=== PATIENT | male | born 1970 | race Caucasian/White ===

== ENCOUNTER 2025-08-17 07:56 | Emergency (ER) | payer BC, SELFPAY ==
[2025-08-17] VITALS (13 sets, daily range): BP systolic 110–128; BP diastolic 67–93; PULSE 107; RESP 18; TEMP 36.8; O2SAT 90–97
--- NOTE | ~2025-08-17 | CT_ITS ---
EXAMINATION: CT lumbar spine wo con COMPARISON: None HISTORY: radicular pain TECHNIQUE: Axial images were obtained through the spine without IV contrast. Coronal, sagittal reconstruction images were obtained from the axial views. CT scan performed using dose optimization techniques including the following automated exposure control; adjustment of mA and/or kV; use of iterative reconstruction technique. Automatic exposure control was used to reduce radiation dose. Permanent radiation dose record is archived to PACS. FINDINGS: The vertebral heights are intact, there is no fracture or subluxation identified. There are disc prostheses noted at L5-S1, L4-5 and L3-4, the visualized hardware appears intact with minimal loss of the remaining disc heights. The soft tissues demonstrate bilateral renal calculi the largest right kidney 4 mm. Impression: No acute abnormality. Reviewed, dictated and finalized at location P. [facility] Impression: No acute abnormality.
--- OUTSIDE RECORDS SUMMARY | 2025-08-17 08:02 | XMS_ITS | Clinical Summary ---
Author Organization [facility] Address [address] [place] [address] Care Team Providers Care Social Worker Health Services Name Role Phone Koby Mckeon Primary Care Provider Allergies Active Allergy Reactions Criticality Noted Date Comments Cephalexin Vomiting Low 12/28/2023 Medications atorvastatin (LIPITOR) 20 mg tablet Take 1 tablet (20 mg total) by mouth daily 5 Active bisacodyl EC (DULCOLAX EC) 5 mg EC tablet Take 1 tablet (5 mg total) by mouth daily as needed for constipation 5 Active polyethylene glycol (MIRALAX) 17 gram/dose bulk powder Take 17 g by mouth as needed 5 Active Ozempic 1 mg/dose (4 mg/3 mL) pen injector injection Inject 1 mg under the skin once a week 5 Active Active Problems Problem Noted Date Diagnosed Date Pulmonary nodule 07/28/2025 Encounters Date Type Department Care Team Description 08/04/2025 8:24 AM MARKETING SUPPORT COORDINATOR - 08/04/2025 11:59 PM MARKETING SUPPORT COORDINATOR Hospital Encounter [facility] [address] [place] [address] Discharge Disposition: Discharge to home or self care 08/04/2025 8:23 AM MARKETING SUPPORT COORDINATOR - 08/04/2025 11:59 PM MARKETING SUPPORT COORDINATOR Hospital Encounter [facility]) [address] [place] [address] Discharge Disposition: Discharge to home or self care 08/04/2025 8:21 AM MARKETING SUPPORT COORDINATOR - 08/04/2025 11:59 PM MARKETING SUPPORT COORDINATOR Hospital Encounter [facility]) [address] [place] [address] Discharge Disposition: Discharge to home or self care 08/04/2025 Telephone [facility] [address] [facility] Medicine [address]th [place] [address] [place] [address] Christina Arshad RN 07/28/2025 9:00 AM MARKETING SUPPORT COORDINATOR Office Visit [facility] [address] [facility] 8th [place] [address] [place] [address] Hilda Garland MD Pulmonary nodule (Primary Dx) 07/28/2025 8:00 AM MARKETING SUPPORT COORDINATOR - 07/28/2025 11:59 PM MARKETING SUPPORT COORDINATOR Hospital Encounter [facility] [address] [facility] [address] [place] [address] Pulmonary nodule Discharge Disposition: Discharge to home or self care 07/28/2025 [facility] [address] [facility] [address]th [place] [address] [place] [address] Sirena Nunes CMA 07/09/2025 [facility] [address] [facility] 8th [place] [address] [place] [address] Kit Multani CPhT Pulmonary nodule (Primary Dx) from Last 3 Months Family History Medical History Relation Name Comments Hypertension Father Cancer Maternal Grandfather Diabetes Maternal Grandfather Hypertension Maternal Grandfather Cancer Maternal Grandmother Diabetes Maternal Grandmother Hypertension Maternal Grandmother Lung disease Maternal Grandmother Thyroid disease Maternal Grandmother Diabetes Mother Hypertension Mother Stroke Mother Thyroid disease Mother Cancer Paternal Grandfather Diabetes Paternal Grandfather Hypertension Paternal Grandfather Cancer Paternal Grandmother Diabetes Paternal Grandmother Hypertension Paternal Grandmother Relation Name Status Comments Father Maternal Grandfather Maternal Grandmother Mother Paternal Grandfather Paternal Grandmother Social History Tobacco Use Types Packs/Day Years Used Date Smoking Tobacco: Never Passive Smoke Exposure: Past Smokeless Tobacco: Never Tobacco Cessation:Counseling Given: Not Answered Sex and Gender Information Value Date Recorded Sex Assigned at Not on file Legal Sex Male 6:16 PM MARKETING SUPPORT COORDINATOR Gender Identity Not on file Sexual Orientation Not on file Last Filed Vital Signs Vital Sign Reading Time Taken Comments Blood Pressure 108/74 07/28/2025 9:32 AM MARKETING SUPPORT COORDINATOR Pulse 71 07/28/2025 9:32 AM MARKETING SUPPORT COORDINATOR Temperature 36.4 C (97.6 F) 07/28/2025 9:32 AM MARKETING SUPPORT COORDINATOR Respiratory Rate 18 07/28/2025 9:32 AM MARKETING SUPPORT COORDINATOR Oxygen Saturation 98% 07/28/2025 9:32 AM MARKETING SUPPORT COORDINATOR Inhaled Oxygen Concentration - - Weight 104.3 kg (230 lb) 07/28/2025 9:32 AM MARKETING SUPPORT COORDINATOR Height 180.3 cm (5' 11) 07/28/2025 9:32 AM MARKETING SUPPORT COORDINATOR Body Mass Index 32.08 07/28/2025 9:32 AM MARKETING SUPPORT COORDINATOR Plan of Treatment Health Maintenance Due Date Last Done Comments Colon Cancer Screening-Colonoscopy 1972 Depression Screening 1972 Hepatitis C Screening 1972 Prostate Cancer Screening-PSA 1972 DTaP/Tdap/Td Vaccine (1 - Tdap) 1983 Hepatitis B Screening 1990 Regular Well Visit/Exam 18-64 1990 Zoster Vaccine (1 of 2) 2022 Influenza Vaccine (#1) 2025 Pneumococcal vaccine <65 Aged Out No longer eligible based on patient's age to complete this topic Procedures Procedure Name Priority Date/Time Associated Diagnosis Comments CT BODY OUTSIDE REFERENCE Routine 08/04/2025 8:24 AM MARKETING SUPPORT COORDINATOR CT BODY OUTSIDE REFERENCE Routine 08/04/2025 8:23 AM MARKETING SUPPORT COORDINATOR CT BODY OUTSIDE REFERENCE Routine 08/04/2025 8:21 AM MARKETING SUPPORT COORDINATOR PULMONARY FUNCTION TEST (PFT) Routine 07/28/2025 8:59 AM MARKETING SUPPORT COORDINATOR Pulmonary nodule from Last 3 Months Results * CT Body Outside Reference (08/04/2025 8:24 AM MARKETING SUPPORT COORDINATOR) Impressions [facility] - 08/04/2025 8:24 AM MARKETING SUPPORT COORDINATOR These images are for Reference purposes only and have not been reviewed by [facility]. There will be no report generated by a [facility] Radiologist. Narrative [facility] - 08/04/2025 8:24 AM MARKETING SUPPORT COORDINATOR EXAMINATION: Images For Reference Purposes Only us Hilda Garland MD [facility] CT PROCEDURES Final Resu lt Performing Organization Address [facility] de Phone Number [email or web address] * CT Body Outside Reference (08/04/2025 8:23 AM MARKETING SUPPORT COORDINATOR) Impressions [facility] - 08/04/2025 8:23 AM MARKETING SUPPORT COORDINATOR These images are for Reference purposes only and have not been reviewed by [facility]. There will be no report generated by a [facility] Radiologist. Narrative [facility] - 08/04/2025 8:23 AM MARKETING SUPPORT COORDINATOR EXAMINATION: Images For Reference Purposes Only us Hilda Garland MD [facility] CT PROCEDURES Final Resu Performing Organization Address [facility] de Phone Number [email or web address] * CT Body Outside Reference (08/04/2025 8:21 AM MARKETING SUPPORT COORDINATOR) Impressions [facility] - 08/04/2025 8:21 AM MARKETING SUPPORT COORDINATOR These images are for Reference purposes only and have not been reviewed by [facility]. There will be no report generated by a [facility] Radiologist. Narrative [facility] - 08/04/2025 8:21 AM MARKETING SUPPORT COORDINATOR EXAMINATION: Images For Reference Purposes Only us Hilda Garland MD [facility] CT PROCEDURES Final Resu lt Performing Organization Address [facility] de Phone Number [email or web address] * Pulmonary Function Test - (07/28/2025 8:59 AM MARKETING SUPPORT COORDINATOR) FVC PRE 3.81 L [facility] FVC %PRE PRED 75 % [facility] FEV1 PRE 3.15 L [facility] FEV1 %PRE PRED 79 % [facility] FEV1/FVC PRE 82.7 % [facility] Anatomical Region Laterality Modality PFT 07/28/2025 8:55 AM MARKETING SUPPORT COORDINATOR Narrative 07/28/2025 9:29 AM MARKETING SUPPORT COORDINATOR PFT performed at:->[facility] Adult PFT Lab- [facility] Procedure:->Oxygen Assessment Titration Procedure:->Lung Volumes Procedure:->Spirometry Procedure:->Spirometry with Bronchodilator Procedure:->DLCO Procedure:->ABG with Co-oximetry DLCO:->Spirometry Air Type:->Room Air Standard:->Plethysmography w/airway resistance, nitrogen washout Pulmonary Function Test Interpretation SPIROMETRY: The FEV1 and FVC are reduced in a pattern suggestive of a restrictive abnormality. The inspiratory loop is normal. Impression: There is a mild restrictive ventilatory defect. However, measurement of lung volumes is suggested to confirm this if clinically indicated. The attending pulmonary physician certifies a physician presence in the [facility] during the administration of aerosolized bronchodilator. The attending pulmonary physician certifies that he/she has reviewed and interpreted the graphic and numerical data of this pulmonary function study and agrees with the written final report. The lower limit of normal for PaO2 and %HbO2 is age dependent. However, the [facility] Pulmonary Function Laboratory defines hypoxemia as a PaO2 <56 mm Hg or a %HbO2 <89%. Starting on September of 2024 the [facility] Pulmonary Function Laboratory utilizes race neutral GLI Global normative equations. Hilda Garland MD PFT ORDERABLES Final Result from Last 3 Months Insurance [employer] [facility] Care Teams Social Worker Health Services Relationship Specialty Start Date End Date Koby Mckeon PA [address] [place] [address] PCP - General Physician Miniature Set Constructor 07/09/25
--- NOTE | 2025-08-17 08:12 | PC.NURSE ---
Laboratory at pt bedside.
[2025-08-17] MEDS: KETOROLAC 15 MG/ML VIAL (*BKC) IV PUSH (08:22)
[2025-08-17] MEDS: ONDANSETRON INJ 4 MG/2 ML VIAL IV PUSH (08:22)
[2025-08-17] MEDS: dexAMETHasone SOD PHOS INJ 10 MG/ML 1 ML VIAL IV PUSH (08:23)
[2025-08-17] MEDS: HYDROmorphone HCL INJ (*CRX) 2 MG/ML VIAL 1 MG IV PUSH (08:23)
--- NOTE | 2025-08-17 08:25 | PC.NURSE ---
Pt to CT scanner with radiology transport.
[2025-08-17 08:28] LABS: Hematocrit 45.7 % (40.0-54.0); Hemoglobin 15.5 g/dL (14.0-18.0); Immature Granulocyte Percent A 0.9 % (0.0-0.0); Lymphocytes Absolute Auto 2.44 K/mm3 (1.10-4.50); Mean Corpuscular HGB Conc 33.9 g/dL (32-36); Mean Corpuscular Hemoglobin 29.7 pg (27.0-31.0); Mean Corpuscular Volume 87.5 fL (78.0-102.0); Nucleated Red Blood Cells Absolute Auto 0.00 K/mm3 (0.00-0.00); Nucleated Red Blood Cells Perc 0.0 % (0-0.0); Platelet Count Result 189 K/mm3 (150-420); Red Blood Count 5.22 M/mm3 (4.70-6.10); White Blood Count 11.0 K/mm3 (4.8-10.8)
--- NOTE | 2025-08-17 08:42 | PC.NURSE ---
Pt back in room from CT scanner.
[2025-08-17 08:59] LABS: Alanine Aminotransferase 22 U/L (6-50); Albumin Level 4.6 g/dL (3.5-5.1); Alkaline Phosphatase 88 U/L (38-126); Anion Gap 11 mmol/L (4-12); Aspartate Amino Transferase 24 U/L (17-59); Bilirubin,Total 0.7 mg/dL (0.2-1.3); Blood Urea Nitrogen 22 mg/dL (9-20); CRP 2.2 mg/dL (<1.0); Calcium 9.9 mg/dL (8.4-10.2); Carbon Dioxide 27 mmol/L (22-30); Chloride 106 mmol/L (98-107); Estimated CRCL calculation 60 ml/min; Estimated Glomerular Filt Rate 54; Glucose 124 mg/dL (65-110); Osmolality Calculated 302 mOsm/kg (285-295); Potassium 4.3 mmol/L (3.4-5.0); Sodium 144 mmol/L (137-145); Total Protein 7.8 g/dL (6.3-8.2)
--- NOTE | 2025-08-17 09:15 | PC.NURSE ---
Initial call to provider MD Cortez with [facility]. RN states provider is in a procedure currently and will call as soon as she is done.
--- NOTE | 2025-08-17 09:32 | PC.NURSE ---
Call back received from MD Cortez at [facility]. Provider to provider communication.
--- NOTE | 2025-08-17 09:35 | PC.NURSE ---
Nisreen Toro MD [facility]
--- NOTE | 2025-08-17 09:39 | ED_ITS ---
HPI - Back Pain/Injury General Chief Complaint: Back Pain/Injury Stated Complaint: Back and L. Leg pain Time Seen by Provider: 08/17/25 07:59 History of Present Illness HPI Narrative: 54-year-old with a history of back surgery several years ago here with a complains lower back radiating to his does mostly on the left for last few days. Patient that had a steroid injection at [place] in spine in orthopedic surgery [address] Daniel Toro ,He states pain is quite intense , No bladder or bowel incontinence. Denies any numbness. Denies any fever or chills MD elicited complaint: back pain Pertinent past history: prior back pain Onset (ago): week(s) (1) Timing: constant Severity: severe Similar Symptoms Previously: Yes Quality: aching Location: lumbar spine Radiation: left upper leg and left leg below the knee Exacerbating factors: none Relieving factors: none Associated symptoms: denies other symptoms Related Data Allergies Allergy/AdvReac Type Severity Reaction Status Date / Time cephalexin (From Keflex) Allergy Intermediate Vomiting Verified 08/17/25 08:06 Review of Systems 2 Review of Systems: All systems reviewed & are unremarkable except as noted in HPI and below Constitutional: Constitutional: Reports no additional constitutional complaints Eyes: Eyes: Reports no additional eye complaints ENT: Reports system reviewed and no additional complaints, except as documented Cardiovascular: Cardiovascular: Reports no additional cardiovascular complaints Respiratory: Respiratory: Reports no additional respiratory complaints Gastrointestinal: Gastrointestinal: Reports no additional gastrointestinal complaints Musculoskeletal: Musculoskeletal: Reports as per HPI Neurologic: Reports system reviewed and no additional complaints, except as documented PMFSH Past Medical History Medical History (Updated 08/17/25 @ 09:40 by Shola Mack MD) No significant past medical history Surgical History Surgical History No significant past surgical history Social History Social History Smoking status: Never smoker Exam 2 Narrative: GENERAL: Well-appearing, well-nourished, and in no acute distress. HEAD: Normocephalic, atraumatic. EYES: PERRLA and EOMI. ENT: Nares clear, no rhinorrhea or epistaxis. Mucous membranes moist. NECK: Supple. CHEST: Clear to auscultation. No respiratory distress. HEART: Regular rate and rhythm. No murmur heard. Normal peripheral pulses. EXTREMITIES: Normal range of motion. No edema. painful ROM of the left lower extremity SKIN: Warm, dry, no rash. NEURO: No focal deficits. Alert and oriented x3. PSYCH: Normal mood and affect. Course Course Emergency Course: pain and is much improved after IV hydromorphone and steroid informed him about his lab work, CT findings. Discussed with Dr. Casillas and patient can be followed up in the office. Vital Signs Vital signs: Vital Signs Temperature 36.8 C 08/17/25 08:08 Pulse Rate 107 H 08/17/25 08:08 Respiratory Rate 18 08/17/25 08:08 Blood Pressure 128/93 H 08/17/25 08:08 Pulse Oximetry 97 08/17/25 08:08 Oxygen Delivery Room Air 08/17/25 08:08 Temperature 36.8 C 08/17/25 08:08 Pulse Rate 107 H 08/17/25 08:08 Respiratory Rate 18 08/17/25 08:08 Blood Pressure 119/78 08/17/25 09:31 Pulse Oximetry 95 08/17/25 09:31 Oxygen Delivery Room Air 08/17/25 08:08 MDM Differential Diagnosis Differential Diagnosis: Cauda equina, epidural bleed, epidural abscess Lab Data 08/17/25 08:19 08/17/25 08:19 Labs: Lab Results 08/17/25 Range/Units 08:19 WBC 11.0 H (4.8-10.8) K/mm3 RBC 5.22 (4.70-6.10) M/mm3 Hgb 15.5 (14.0-18.0) g/dL Hct 45.7 (40.0-54.0) % MCV 87.5 (78.0-102.0) fL MCH 29.7 (27.0-31.0) pg MCHC 33.9 (32-36) g/dL RDW 12.5 (11.6-14.4) % Plt Count 189 (150-420) K/mm3 MPV 9.1 (8.7-11.0) fl Immature Gran % (Auto) 0.9 H (0.0-0.0) % Neut % (Auto) 65.9 (50.0-70.0) % Lymph % (Auto) 22.1 (18.0-42.0) % Republic % (Auto) 8.9 (2.0-11.0) % Eos % (Auto) 1.9 (1.0-6.0) % Baso % (Auto) 0.3 (0.0-1.0) % Lymph # (Auto) 2.44 (1.10-4.50) K/mm3 Republic # (Auto) 0.98 H (0.10-0.90) K/mm3 Eos # (Auto) 0.21 (0.02-0.50) K/mm3 Baso # (Auto) 0.03 (0.00-0.10) K/mm3 Abs Immat Gran (auto) 0.10 H (0.00-0.00) K/mm3 Absolute Neuts (auto) 7.28 H (1.70-7.20) K/mm3 Absolute Nucleated RBC 0.00 (0.00-0.00) K/mm3 Nucleated RBC % 0.0 (0-0.0) % Sodium 144 (137-145) mmol/L Potassium 4.3 (3.4-5.0) mmol/L Chloride 106 (98-107) mmol/L Carbon Dioxide 27 (22-30) mmol/L Anion Gap 11 (4-12) mmol/L BUN 22 H D (9-20) mg/dL Creatinine 1.38 H (0.7-1.3) mg/dL Estim Creat Clear Calc 60 ml/min Estimated GFR 54 L (59 - ) Glucose 124 H (65-110) mg/dL Calculated Osmolality 302 H (285-295) mOsm/kg Calcium 9.9 (8.4-10.2) mg/dL Total Bilirubin 0.7 (0.2-1.3) mg/dL AST 24 (17-59) U/L ALT 22 (6-50) U/L Alkaline Phosphatase 88 (38-126) U/L C-Reactive Protein 2.2 H (<1.0) mg/dL Total Protein 7.8 (6.3-8.2) g/dL Albumin 4.6 (3.5-5.1) g/dL Imaging Data Radiologist's impression: ITS Impressions Lumbar Spine CT 08/17/25 08:45 Impression: No acute abnormality. Discharge Plan Discharge Clinical Impression: Radicular low back pain Patient Disposition: Home Condition: Stable Instructions: Lumbar Radiculopathy (ED) Additional Instructions: continue home medications, follow with your doctor. Patient Language: Russian Prescriptions: New methylprednisolone [Medrol (Bridger)] 4 mg tablets,dose pack See Rx Instructions .ROUTE .COMPLEX Qty: 21 0RF Rx Instructions: orally per package directions No Action ondansetron 4 mg tablet,disintegrating 4 mg PO Q6-8H PRN (Reason: nausea and vomiting) Qty: 14 0RF hydrocodone-acetaminophen [[place]] 5-325 mg tablet 1 tablet PO Q6H PRN (Reason: pain) Qty: 14 0RF tamsulosin [Flomax] 0.4 mg capsule 0.4 mg PO DAILY Qty: 7 0RF Rx Instructions: for kidney stone Follow-up/Referrals: Linda,KIESHA Whalen [Primary Care Provider] Time of Disposition: 09:41
--- OUTSIDE RECORDS SUMMARY | 2025-08-17 09:43 | XMS_ITS | Clinical Summary ---
Author Organization [facility] Address [address] [place] [address] Care Team Providers Care Cylinder Loader Name Role Phone Koby Mckeon Primary Care [...] Department Care Team Description 08/04/2025 8:24 AM ACETYLENE GAS COMPRESSOR - 08/04/2025 11:59 PM ACETYLENE GAS COMPRESSOR Hospital Encounter [facility] [address] [place] [address] Discharge Disposition: Discharge to home or self care 08/04/2025 8:23 AM ACETYLENE GAS COMPRESSOR - 08/04/2025 11:59 PM ACETYLENE GAS COMPRESSOR Hospital Encounter [facility]) [address] [place] [address] Discharge Disposition: Discharge to home or self care 08/04/2025 8:21 AM ACETYLENE GAS COMPRESSOR - 08/04/2025 11:59 PM ACETYLENE GAS COMPRESSOR Hospital Encounter [facility]) [address] [place] [address] Discharge Disposition: Discharge to home or self care 08/04/2025 Telephone [facility] [address] [facility] Medicine 8th [place] [address] [place] [address] Christina Arshad RN 07/28/2025 9:00 AM ACETYLENE GAS COMPRESSOR Office Visit [facility] [address] [facility] 8th [place] [address] [place] [address] Hilda Garland MD Pulmonary nodule (Primary Dx) 07/28/2025 8:00 AM ACETYLENE GAS COMPRESSOR - 07/28/2025 11:59 PM ACETYLENE GAS COMPRESSOR Hospital Encounter [facility] [address] [facility] [address] [place] [address] Pulmonary nodule Discharge Disposition: Discharge to home or self care 07/28/2025 [facility] [address] [facility] Medicine 8th [place] [address] [place] [address] Sirena Nunes CMA 07/09/2025 [facility] [address] [facility] 8th [place] [address] [place] [address] Kit Multani CPhT Pulmonary nodule (Primary Dx) [...] on file Legal Sex Male 6:16 PM ACETYLENE GAS COMPRESSOR Gender Identity Not on file Sexual Orientation Not on file Last Filed Vital Signs Vital Sign Reading Time Taken Comments Blood Pressure 108/74 07/28/2025 9:32 AM ACETYLENE GAS COMPRESSOR Pulse 71 07/28/2025 9:32 AM ACETYLENE GAS COMPRESSOR Temperature 36.4 C (97.6 F) 07/28/2025 9:32 AM ACETYLENE GAS COMPRESSOR Respiratory Rate 18 07/28/2025 9:32 AM ACETYLENE GAS COMPRESSOR Oxygen Saturation 98% 07/28/2025 9:32 AM ACETYLENE GAS COMPRESSOR Inhaled Oxygen Concentration - - Weight 104.3 kg (230 lb) 07/28/2025 9:32 AM ACETYLENE GAS COMPRESSOR Height 180.3 cm (5' 11) 07/28/2025 9:32 AM ACETYLENE GAS COMPRESSOR Body Mass Index 32.08 07/28/2025 9:32 AM ACETYLENE GAS COMPRESSOR Plan of Treatment Health Maintenance Due Date [...] BODY OUTSIDE REFERENCE Routine 08/04/2025 8:[address] BODY OUTSIDE REFERENCE Routine 08/04/2025 8:[address] BODY OUTSIDE REFERENCE Routine 08/04/2025 8:21 AM ACETYLENE GAS COMPRESSOR PULMONARY FUNCTION TEST (PFT) Routine 07/28/2025 8:59 AM ACETYLENE GAS COMPRESSOR Pulmonary nodule from Last 3 Months Results * CT Body Outside Reference (08/04/2025 8:24 AM ACETYLENE GAS COMPRESSOR) Impressions RAD_[facility] - 08/04/2025 8:24 AM ACETYLENE GAS COMPRESSOR These images are for Reference purposes only and have not been reviewed by [facility]. There will be no report generated by a [facility]iologist. Narrative [facility] - 08/04/2025 8:24 AM ACETYLENE GAS COMPRESSOR EXAMINATION: Images For Reference Purposes Only us Hilda Garland MD [facility] CT PROCEDURES Final Resu lt Performing Organization Address [facility] de Phone Number [email or web address] * CT Body Outside Reference (08/04/2025 8:23 AM ACETYLENE GAS COMPRESSOR) Impressions [facility] - 08/04/2025 8:23 AM ACETYLENE GAS COMPRESSOR These images are for Reference purposes only and have not been reviewed by [facility]. There will be no report generated by a [facility] Radiologist. Narrative [facility] - 08/04/2025 8:23 AM ACETYLENE GAS COMPRESSOR EXAMINATION: Images For Reference Purposes Only us Hilda Garland MD [facility] CT PROCEDURES Final Resu Performing Organization Address [facility] de Phone Number [email or web address] * CT Body Outside Reference (08/04/2025 8:21 AM ACETYLENE GAS COMPRESSOR) Impressions [facility] - 08/04/2025 8:21 AM ACETYLENE GAS COMPRESSOR These images are for Reference purposes only and have not been reviewed by [facility]. There will be no report generated by a [facility]iologist. Narrative [facility] - 08/04/2025 8:21 AM ACETYLENE GAS COMPRESSOR EXAMINATION: Images For Reference Purposes Only us Hilda Garland MD [facility] CT PROCEDURES Final Resu lt Performing Organization Address [facility] de Phone Number [email or web address] * Pulmonary Function Test - (07/28/2025 8:59 AM ACETYLENE GAS COMPRESSOR) FVC PRE 3.81 L [facility] FVC %PRE PRED 75 % [facility] FEV1 PRE 3.15 L [facility] FEV1 %PRE PRED 79 % [facility] FEV1/FVC PRE 82.7 % [facility] Anatomical Region Laterality Modality PFT 07/28/2025 8:55 AM ACETYLENE GAS COMPRESSOR Narrative 07/28/2025 9:29 AM ACETYLENE GAS COMPRESSOR PFT performed at:->[facility] Adult PFT Lab- [facility] Procedure:->Oxygen Assessment [...] and %HbO2 is age dependent. However, the [facility] defines hypoxemia as a PaO2 <56 mm Hg or a %HbO2 <89%. Starting on September of [address] [facility] Function Laboratory utilizes race neutral GLI Global normative equations. Hilda Garland MD PFT ORDERABLES Final Result from Last 3 Months Insurance [employer] Care Teams Cylinder Loader Relationship Specialty Start Date End Date Koby Mckeon PA [address] [place] [address] PCP - General Physician Quality Systems Engineer 07/09/25
== END 2025-08-17 10:08 | disposition home or self-care (01) ==
PROVIDERS: Emergency Provider Family Medicine; PCP Physician Assistant
DX: M54.50 Low back pain, unspecified (principal)
CPT/HCPCS: 36415; 72131; 80053; 85025; 86140; 96374; 96375; 99284; J1100; J1171; J1885; J2405

== ENCOUNTER 2025-08-24 17:00 | Emergency (ER) | payer BC, SELFPAY ==
[2025-08-24] VITALS (11 sets, daily range): BP systolic 105–184; BP diastolic 70–107; PULSE 86–121; RESP 16–20; TEMP 36.8; O2SAT 93–98
[2025-08-24] MEDS: MORPHINE SULFATE (*CRX) 4 MG/ML INJ IV PUSH (17:32)
[2025-08-24] MEDS: KETOROLAC 30 MG/ML VIAL (*BKC) IV PUSH (17:36)
[2025-08-24] MEDS: dexAMETHasone SOD PHOS INJ 10 MG/ML 1 ML VIAL IV PUSH (17:36)
--- NOTE | 2025-08-24 17:38 | ED_ITS ---
HPI - Back Pain/Injury General Chief Complaint: Back Pain/Injury Stated Complaint: L. 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 This was around 6 or 7 years ago, eventually had to have 3 diskectomies, replaced with ?titanium cages?. That helped a lot but then a few months ago he picks that up and it triggered ongoing pain in his left lower back going down his left leg, to the point where he had a 1st steroid injection about 3 weeks ago. It helped for 1 day, then the pain returned, and has been so painful it has been very difficult for him to do anything, difficult for him to get up and ambulate, and he was seen in the emergency department about a week ago, and CT was obtained that was negative for any evidence of bleed, infection, diskitis. He reports he was on a short course of steroids finish them yesterday, and reports he really has been in so much pain he has not been able to participate is usual activities, but there is no weakness or paralysis, there is been no incontinence of stool or urine, just excruciating pain. He he takes an occasional Tylenol or ibuprofen but denies having presents prescribed anything else. Denies any type of narcotic pain medication. He is set up back up to see his physician that did the injection this coming Saturday. He had called his doctor's office today to set him up for an ultrasound although was not sure of what. Related Data Allergies Allergy/AdvReac Type Severity Reaction Status Date / Time cephalexin (From Keflex) Allergy Intermediate Vomiting Verified 08/24/25 17:12 Review of Systems 2 Review of Systems: ROS is negative except as in HPI PMFSH Past Medical History Medical History (Updated 08/24/25 @ 20:49 by Casimiro Salamanca MD) No significant past medical history Surgical History Surgical History No significant past surgical history Social History Social History Smoking status: Never smoker Exam 2 Narrative: pleasant, well oriented, appears in significant pain but does not appear toxic, no acute distress He reports severe pain on palpation of his left lower leg ankle and foot such as the level of discomfort to check his pulse. Light touch of his skin does not trigger pain. There is no erythema of the distal left leg ankle or foot, no pedal edema, no calf tenderness, and pulses and capillary refill are intact. When he tries to raise his left leg pain increases. Pain also increases when he flexes or extends his left knee, ankle, or foot. Distal neurovascular is intact Const: General: cooperative, healthy appearing, comfortable, no acute distress, well developed, alert, awake and Physically active O rientation/consciousness: patient oriented x3 HENMT: Head: normal to inspection, normocephalic and atraumatic Ears: h earing grossly normal bilaterally and external ears normal Face/Nose/Sinus: N ormal external nose present, Normal nares present, Normal nasal mucous membranes and turbinates present and normal facial exam Face and sinus: normal facial exam Mouth: Yes Normal oral and palatal mucosa present, Yes lip normal, Yes tongue normal, Yes oropharynx normal and Yes moist mucous membranes Teeth and gingiva: dentition normal Throat: posterior oropharynx normal and tonsils normal ( erythematous) Eyes: General: appearance normal, both eyes and all related structures A lignment and Position: alignment normal and position normal Periorbital: p eriorbital findings normal Eyelids: eyelids normal Conjunctivae: c onjunctivae normal Sclera: sclerae normal Cornea: corneas normal P upils: Equal, round and reactive pupils present EOM: EOMs intact bilaterally Neck: Neck: normal visual inspection, full ROM and no lymphadenopathy Chest: Chest palpation & inspection: normal inspection of the chest Resp: Effort & Inspection: normal respiratory effort, able to speak in complete sentences, no audible wheezes, no respiratory distress and no use of accessory muscles Auscultation: clear to auscultation bilaterally Cardio: Jugular venous distension: no JVD Rate: regular rate Rhythm: r egular rhythm GI: Inspection: normal to inspection GI Palp: No abdominal tenderness, No Tenderness to palpation present (GI), No Guarding due to palpation present (GI), No No hepatosplenomegaly present, No Palpable mass present and No Rebound tenderness present Skin: General skin exam: normal color, no rashes or lesions noted, elasticity normal and turgor normal Neuro: General: patient oriented x3, gait normal, tone normal and moves all extremities Cranial nerves: Yes CN's II-XII intact bilaterally, Yes Equal, round and reactive pupils present and Yes Bilaterally intact EOM present S peech: normal speech Motor exam (neuro): 5/5 motor strength present throughout and Normal motor muscle tone present throughout Sensory Exam: n ormal sensation Extrem: General: normal to inspection, normal exam except as noted and no pedal edema Psych: Appearance: grossly normal and well kempt Mental Status: mental status grossly normal Speech and movement: Normal speech and movement present Affect: normal affect Attitude: cooperative Thought process: Normal thought process present Course Course Emergency Course: Differential diagnosis includes but is not limited to left sciatica, Workup shows an H&H of 15.8 and 46.8 which is normal, [place] [address]. His D-dimer is low at 0.22 so there is no indication for ultrasound at this point Patient's CMP is normal except for an elevated BUN of 23 and creatinine 1.26 likely consistent with some dehydration likely secondary to his pain on movement and likely reluctant to have to go to the restroom any more often than he needs to His CRP is normal at 0.8 Urine is negative for any evidence of infection, His sed rate is also low at 6. There is no indication at this time that this pain is a diskitis Discussed ways of managing the perception of pain Discussed role of medications such as amitriptyline, Lyrica, Cymbalta, Neurontin, all of which she has not had any exposure to Discuss role of steroids, he had been treated with a Medrol Dosepak and with his weight of about 240 lb, that Alexandra would be a pretty low steroid dose, the wound does IV, and will discharge him starting at 50 mg of prednisone a day dropping by 5 mg daily Will begin amitriptyline 25 mg at HS Will begin naproxen 500 mg 2 to 3 times a day Will give her short course of [place] when cautioned against prolonged use He is to follow-up with his back surgeon who did the injection He is to return emergency department if worsened Medical decision making complex and risk was moderate Vital Signs Vital signs: Vital Signs Temperature 36.8 C 08/24/25 17:05 Pulse Rate 121 H 08/24/25 17:05 Respiratory Rate 20 08/24/25 17:05 Blood Pressure 133/86 08/24/25 17:05 Pulse Oximetry 98 08/24/25 17:05 Temperature 36.8 C 08/24/25 17:05 Pulse Rate 86 08/24/25 19:19 Respiratory Rate 17 08/24/25 18:15 Blood Pressure 154/103 H 08/24/25 20:32 Pulse Oximetry 96 08/24/25 20:32 Oxygen Delivery Room Air 08/24/25 18:15 MDM Differential Diagnosis Differential Diagnosis: Differential diagnosis is in the ED course Lab Data 08/24/25 17:33 08/24/25 17:33 Labs: Lab Results 08/24/25 08/24/25 Range/Units 17:33 17:47 WBC 14.7 H (4.8-10.8) K/mm3 RBC 5.38 (4.70-6.10) M/mm3 Hgb 15.8 (14.0-18.0) g/dL Hct 46.8 (40.0-54.0) % MCV 87.0 (78.0-102.0) fL MCH 29.4 (27.0-31.0) pg MCHC 33.8 (32-36) g/dL RDW 12.3 (11.6-14.4) % Plt Count 215 (150-420) K/mm3 MPV 8.9 (8.7-11.0) fl Immature Gran % (Auto) 1.5 H (0.0-0.0) % Neut % (Auto) 69.3 (50.0-70.0) % Lymph % (Auto) 20.3 (18.0-42.0) % [place] % (Auto) 7.4 (2.0-11.0) % Eos % (Auto) 1.2 (1.0-6.0) % Baso % (Auto) 0.3 (0.0-1.0) % Lymph # (Auto) 2.97 (1.10-4.50) K/mm3 [place] # (Auto) 1.09 H (0.10-0.90) K/mm3 Eos # (Auto) 0.18 (0.02-0.50) K/mm3 Baso # (Auto) 0.04 (0.00-0.10) K/mm3 Abs Immat Gran (auto) 0.22 H (0.00-0.00) K/mm3 Absolute Neuts (auto) 10.16 H (1.70-7.20) K/mm3 Absolute Nucleated RBC 0.00 (0.00-0.00) K/mm3 Nucleated RBC % 0.0 (0-0.0) % ESR 6 (0-20) mm/hr D-Dimer 0.22 (0.19-0.50) mg/L Sodium 141 (137-145) mmol/L Potassium 3.7 (3.4-5.0) mmol/L Chloride 105 (98-107) mmol/L Carbon Dioxide 25 (22-30) mmol/L Anion Gap 11 (4-12) mmol/L BUN 23 H (9-20) mg/dL Creatinine 1.26 (0.7-1.3) mg/dL Estim Creat Clear Calc 65 ml/min Estimated GFR 60 (59 - ) Glucose 157 H (65-110) mg/dL Calculated Osmolality 298 H (285-295) mOsm/kg Uric Acid 6.0 (3.5-8.5) mg/dL Calcium 9.4 (8.4-10.2) mg/dL Total Bilirubin 0.7 (0.2-1.3) mg/dL AST 19 (17-59) U/L ALT 21 (6-50) U/L Alkaline Phosphatase 87 (38-126) U/L C-Reactive Protein 0.8 (<1.0) mg/dL Total Protein 7.5 (6.3-8.2) g/dL Albumin 4.6 (3.5-5.1) g/dL Urine Color Yellow (Yellow) Urine Appearance Clear (Clear) Urine pH 5.5 (5.0-8.0) Ur Specific [place] 1.020 (1.010-1.020) Urine Protein Negative (Negative) Urine Glucose (UA) Negative (Negative) Urine Ketones Negative (Negative) Ur Blood (Man) Negative (Negative) Urine Nitrate Negative (Negative) Urine Bilirubin Negative (Negative) Urine Urobilinogen 0.2 (0.2-1.0) mg/dL Leukocyte Esterase Rfl Negative (Negative) EDENILSON/UL Discharge Plan Discharge Clinical Impression: Sciatica Qualifiers: Laterality: left Qualified Code(s): M54.32 - Sciatica, left side Patient Disposition: Home Condition: Stable Instructions: Sciatica (ED), Lumbar Radiculopathy (ED) Additional Instructions: Check around the area for [employer] he has with indoor pools issue could participate and water based exercises and activities Concentrate on finding things that her enjoyable that you can still do and make sure that she participate in them Take the steroids as prescribed and the other medications as prescribed Get up every couple of hours and move around, gently bend in all directions in with all joints to try to maintain range of motion and flexible Follow-up with your surgeon on Saturday as scheduled Discuss trials of the various adjunctive medications Will start you on amitriptyline today, for the 1st month or so you will find yourself for therapy, keep up glass of water with you night. It also may make you constipated so make sure that you take Metamucil to heaping tbsp in a glass of water twice a day and MiraLax as needed Return to the emergency department if you become incontinent of stool urine, lose strength, her other concerns Patient Language: Latvian Prescriptions: New prednisone 5 mg tablets,dose pack 5 mg PO DIRECTED Qty: 48 0RF Rx Instructions: see taper instructions hydrocodone-acetaminophen 5-325 mg tablet 1 tablet PO DAILY PRN (Reason: pain) Qty: 20 0RF amitriptyline 25 mg tablet 25 mg PO HS Qty: 30 0RF naproxen 500 mg tablet 500 mg PO BID PRN (Reason: pain) Qty: 60 0RF No Action methylprednisolone [Medrol (Bridger)] 4 mg tablets,dose pack See Rx Instructions .ROUTE .COMPLEX Qty: 21 0RF Rx Instructions: orally per package directions ondansetron 4 mg tablet,disintegrating 4 mg PO Q6-8H PRN (Reason: nausea and vomiting) Qty: 14 0RF hydrocodone-acetaminophen [[place]] 5-325 mg tablet 1 tablet PO Q6H PRN (Reason: pain) Qty: 14 0RF tamsulosin [Flomax] 0.4 mg capsule 0.4 mg PO DAILY Qty: 7 0RF Rx Instructions: for kidney stone Follow-up/Referrals: Linda,KIESHA Whalen [Primary Care Provider] Time of Disposition: 20:44
[2025-08-24 17:39] LABS: Hematocrit 46.8 % (40.0-54.0); Hemoglobin 15.8 g/dL (14.0-18.0); Immature Granulocyte Percent A 1.5 % (0.0-0.0); Lymphocytes Absolute Auto 2.97 K/mm3 (1.10-4.50); Mean Corpuscular HGB Conc 33.8 g/dL (32-36); Mean Corpuscular Hemoglobin 29.4 pg (27.0-31.0); Mean Corpuscular Volume 87.0 fL (78.0-102.0); Nucleated Red Blood Cells Absolute Auto 0.00 K/mm3 (0.00-0.00); Nucleated Red Blood Cells Perc 0.0 % (0-0.0); Platelet Count Result 215 K/mm3 (150-420); Red Blood Count 5.38 M/mm3 (4.70-6.10); White Blood Count 14.7 K/mm3 (4.8-10.8)
[2025-08-24 17:52] LABS: Alanine Aminotransferase 21 U/L (6-50); Albumin Level 4.6 g/dL (3.5-5.1); Alkaline Phosphatase 87 U/L (38-126); Anion Gap 11 mmol/L (4-12); Aspartate Amino Transferase 19 U/L (17-59); Bilirubin,Total 0.7 mg/dL (0.2-1.3); Blood Urea Nitrogen 23 mg/dL (9-20); Calcium 9.4 mg/dL (8.4-10.2); Carbon Dioxide 25 mmol/L (22-30); Chloride 105 mmol/L (98-107); Estimated CRCL calculation 65 ml/min; Estimated Glomerular Filt Rate 60; Glucose 157 mg/dL (65-110); Osmolality Calculated 298 mOsm/kg (285-295); Potassium 3.7 mmol/L (3.4-5.0); Sodium 141 mmol/L (137-145); Total Protein 7.5 g/dL (6.3-8.2); Uric Acid 6.0 mg/dL (3.5-8.5)
[2025-08-24 17:55] LABS: CRP 0.8 mg/dL (<1.0)
[2025-08-24 18:34] LABS: Add Urine Microscopic? NO; Appearance Urine Clear (Clear); Glucose Urine UA Negative (Negative); Leukocyte Esterase Ur Negative LEU/UL (Negative); Nitrate Urine Negative (Negative); Specific Grav Ur 1.020 (1.010-1.020)
--- OUTSIDE RECORDS SUMMARY | 2025-08-24 19:04 | XMS_ITS | Clinical Summary ---
Author Organization [facility] Address [facility] [place] [address] Care Team Providers Care Bilingual Secretary Name Role Phone Compa Anton MD Primary Care Provider [phone] Allergies Active Allergy Reactions Criticality Noted Date Comments Cephalexin Vomiting 12/28/2023 Medications Semaglutide (OZEMPIC, 0.25 OR 0.5 MG/DOSE, SC) Inject 0.5 mg PE into the skin once a week. Active atorvastatin (LIPITOR) 20 MG tablet Take 1 tablet (20 mg total) by mouth nightly at bedtime. Active Encounters Date Type Department Care Team Description 07/06/2025 9:49 AM CDT - 07/06/2025 10:24 AM CDT [place] [place] [address] Lorena Jacinto MD COLONOSCOPY WITH COLD SNARE POLYECTOMY 07/06/2025 9:09 AM CDT Anesthesia [place] [address] Precious Loredo CRNA 07/06/2025 8:11 AM CDT - 07/06/2025 10:15 AM CDT [place] [address] Lorena Jacinto MD Discharge Disposition: Home or Self Care (Routine Discharge) 07/06/2025 Travel 06/28/2025 Travel 05/26/2025 8:40 AM CDT - 05/26/2025 11:59 PM CDT Hospital Encounter [place] [address] [place] [address] Koby Iraheta, PA Discharge Disposition: Home or Self Care (Routine Discharge) 05/26/2025 Travel from Last 3 Months Social History Tobacco Use Types Packs/Day Years Used Date Smoking Tobacco: Never Smokeless Tobacco: Current Chew Tobacco Cessation:Ready to Q uit: Not Asked; Counseling Given: Not Answered Alcohol Use Standard Drinks/Week Comments Not Currently 0 (1 standard drink = 0.6 oz pur e alcohol) Sex and Gender Information Value Date Recorded Sex Assigned at Male 05/26/2025 8:31 AM CDT Legal Sex Male 6:19 PM CDT Gender Identity Not on file Sexual Orientation Not on file Last Filed Vital Signs Vital Sign Reading Time Taken Comments Blood Pressure 102/70 07/06/2025 10:05 AM CDT Pulse 83 07/06/2025 10:05 AM CDT Temperature 36.1 C (96.9 F) 07/06/2025 9:55 AM CDT Respiratory Rate 16 07/06/2025 10:05 AM CDT Oxygen Saturation 98% 07/06/2025 10:05 AM CDT Inhaled Oxygen Concentration - - Weight 90.7 kg (200 lb) 06/28/2025 1:32 PM CDT Height 180.3 cm (5' 11) 06/28/2025 1:32 PM CDT Body Mass Index 27.89 06/28/2025 1:32 PM CDT Plan of Treatment Health Maintenance Due Date Last Done Comments Annual Physical 1975 DTaP, Tdap and Td Vaccines ( 1 - Tdap) 1991 Hepatitis B Vaccines (1 of 3 - 19+ 3-dose series) 1991 Pneumococcal Vaccine: 50+ Years (1 of 1 - PCV) 2022 Zoster Vaccines (1 of 2) 2022 COVID-19 Vaccine ( - 2024-2 6 season) 2025 Influenza Adult (#1) 2025 Colorectal Cancer Screening Colonoscopy (10 Years) 07/06/2035 07/06/2025, 07/06/2025 Hepatitis C Completed 02/08/2023 Hepatitis A Vaccines Aged Out No long er eligible based on patient's age to complete this topic Meningococcal B Vaccine Aged Out No l onger eligible based on patient's age to complete this topic Meningococcal Vaccine Aged Out No alejandra sylvain eligible based on patient's age to complete this topic RSV Immunizations Under 20 Months Aged Out No longer eligible b ased on patient's age to complete this topic Procedures Procedure Name Priority Date/Time Associated Diagnosis Comments COLONOSCOPY DIAGNOSTIC WITH/WITHOUT SPECIMEN BRUSH/WASH 07/06/2025 9:04 AM CDT H/O POLYPS POCT GLUCOSE - DOCKED DEVICE Routine 07/06/2025 8:45 AM CDT COLONOSCOPY 07/06/2025 6:44 AM CDT PATHOLOGY Routine 07/06/2025 12:[address] CHEST WO CON Routine 05/26/2025 8:53 AM CDT Pulmonary nodules HEPATITIS PANEL,ACUTE Routine 02/08/2023 12:25 PM CDT Pre-op exam from Last 3 Months or Most Recently Relevant to Health Maintenance Results * POCT glucose (07/06/2025 8:45 AM CDT) Pathologist [facility] GLUCOSE POC 86 70 - 99 MG/DL 07/06/2025 8:46 AM CDT [facility] 07/06/2025 8:45 AM CDT us Lorena Jacinto MD POCT ORDERABLES - DEVICE Ramandeep l Result [facility] [address] [place] [address], * Colonoscopy (07/06/2025 6:44 AM CDT) us Lorena Jacinto MD GI PROCEDURE ORDERABLES Final Result * Pathology (07/06/2025 12:00 AM CDT) PATHOLOGY [facility] Department of Laboratory Medicine [address] [place] [address] , extension [phone] Pathology Report Surgical Pathology Report Name: TANMAY BOLTON Specimen #: [id number] Age: 1 1970 (Age: 54) Location: [facility] Sex: M Procedure Date: 07/06/2025 Hospital #: [id number] Date Received: 07/06/2025 Date Reported: 07/08/2025 Provider: LORENA JACINTO MD Source: Colon, sigmoid, polyp Clinical History: History of polyps. FINAL DIAGNOSIS: Colon, sigmoid polyp, biopsy: - Colonic mucosa with surface hyperplastic change. Gross Description: Received in formalin, labeled with a patient label and as sigmoid polyp is a 0.2 cm piece of morales tissue and a 1.2 x 0.5 cm sheet of pink-morales tissue. The sheet of tissue is bisected. The specimen is entirely submitted in cassette 1. Gross examination (when applicable), interpretation, and sign out were performed at [facility], [address] [place] [address]. Electronically Signed Out YUNI FRAGOSO MD [facility] TISSUE COLON STRUCTURE / Unknown 07/06/2025 9:26 AM CDT us Lorena Jacinto MD PATHOLOGY/CYTOLOGY ORDERABLES Final Result [facility] [address] [place] [address], [id number] * CT CHEST WO CON (05/26/2025 8:53 AM CDT) Anatomical Region Laterality Modality Chest Computed Tomogra phy 06/03/2025 10:3 1 AM CDT Impressions 06/03/2025 10:45 AM CDT IMPRESSION: 1. Overall progression of findings as described. See text. Consider pulmonary consultation. 2. No acute intrathoracic process identified. 3. Redemonstrated nephrolithiasis. Ordered By: KOBY IRAHETA Interpreted By: Vladislav Jimenez MD, 06/03/2025 10:31 AM Narrative 06/03/2025 10:45 AM CDT [address] [place] [address] Examination: CT of the chest without contrast. Exam time: 0853 hours. Clinical history: Follow-up of pulmonary nodules. History of nephrolithiasis. Comparison: 03/02/2024; CT of the abdomen and pelvis, 12/28/2023. Technique: Spiral scanning was performed through the chest without contrast. Sagittal and coronal reconstructions were performed from the data set. A dose lowering technique was used for this procedure, which may include, but is not limited to, dose reduction techniques, automated exposure control, the use of iterative reconstruction and ALARA/Image Gently techniques. Findings: Minor atherosclerotic calcification of the aorta is again noted. The heart and great vessels are otherwise unremarkable for the noncontrast technique. Precarinal lymph node is now mildly enlarged. There are additional mediastinal lymph nodes which are not enlarged by strict criteria but have increased in size. This is objectively nonspecific. No hilar adenopathy is identified. No endobronchial abnormality is identified. Multiple bilateral noncalcified pulmonary nodules are again evident. Allowing for inherent technical differences, they are generally stable or show millimetric enlargement. New nodules are identified to include clustered nodules in the right upper lobe (image 29 for example). Findings are annotated on the lung window series images. There is no dominant mass or focal airspace opacity. No pleural abnormalities are seen. The chest wall structures are unchanged. The included sections through the upper abdomen show no acute process. There is incompletely imaged bilateral nephrolithiasis. The findings in the chest remain objectively indeterminate. Although indolent progression suggests an infectious or inflammatory process, neoplasm cannot be excluded. Clinical correlation is required with consideration given to pulmonary consultation. Biopsy would likely be required for definitive diagnosis. Procedure Note Vladislav Jimenez MD - 06/03/[address] [place] [address] Examination: CT of the chest without contrast. Exam time: 0853 hours. Clinical history: Follow-up of pulmonary nodules. History ofnephrolithiasis. Comparison: 03/02/2024; CT of the abdomen and pelvis, 12/28/2023. Technique: Spiral scanning was performed through the chest withoutcontrast. Sagittal and coronal reconstructions were performed from thedata set. A dose lowering technique was used for this procedure, whichmay include, but is not limited to, dose reduction techniques, automatedexposure control, the use of iterative reconstruction and ALARA/ImageGently techniques. Findings: Minor atherosclerotic calcification of the aorta is again noted.The heart and great vessels are otherwise unremarkable for the noncontrasttechnique. Precarinal lymph node is now mildly enlarged. There areadditional mediastinal lymph nodes which are not enlarged by strictcriteria but have increased in size. This is objectively nonspecific. Nohilar adenopathy is identified. No endobronchial abnormality isidentified. Multiple bilateral noncalcified pulmonary nodules are againevident. Allowing for inherent technical differences, they are generallystable or show millimetric enlargement. New nodules are identified toinclude clustered nodules in the right upper lobe (image 29 for example).Findings are annotated on the lung window series images. There is nodominant mass or focal airspace opacity. No pleural abnormalities areseen. The chest wall structures are unchanged. The included sectionsthrough the upper abdomen show no acute process. There is incompletelyimaged bilateral nephrolithiasis. The findings in the chest remain objectively indeterminate. Althoughindolent progression suggests an infectious or inflammatory process,neoplasm cannot be excluded. Clinical correlation is required withconsideration given to pulmonary consultation. Biopsy would likely berequired for definitive diagnosis. IMPRESSION: 1. Overall progression of findings as described. See text. Considerpulmonary consultation. 2. No acute intrathoracic process identified. 3. Redemonstrated nephrolithiasis. Ordered By: KOBY IRAHETA Interpreted By: Vladislav Jimenez MD, 06/03/2025 10:31 AM us Koby Iraheta PA CT Final Result * HEPATITIS PANEL,ACUTE (02/08/2023 12:25 PM CDT) HEPATITIS B SURFACE AG NON-REACT ALIZA NON-REACT ALIZA 02/10/2023 8:41 AM CDT [facility] Comment:HBsAg NOT DETECTED. HEP B CORE IGM NON-REACT ALIZA NON-REACT ALIZA 02/10/2023 6:49 AM CDT [facility] Comment: IgM ANTI HBc NOT DETECTED. DOES NOT EXCLUDE THE POSSIBILITY OF EXPOSURE TO OR INFECTION WITH HBV. NO RETEST REQUIRED. HIGH DOSES OF BIOTIN MAY INTERFERE WITH THIS TEST RESULT. CORRELATION TO CLINICAL HISTORY AND PRESENTATION RECOMMENDED. HAV IGM NON-REACT ALIZA NON-REACT ALIZA 02/10/2023 6:49 AM CDT [facility] Comment: IgM ANTI HAV NOT DETECTED. DOES NOT EXCLUDE THE POSSIBILITY OF EXPOSURE TO OR INFECTION WITH HAV. LEVELS OF IgM ANTI HAV MAY BE BELOW THE CUTOFF IN EARLY INFECTION. HEPATITIS C AB NON-REACT ALIZA NON-REACT ALIZA 02/10/2023 6:49 AM CDT [facility] Comment: ANTIBODIES TO HCV NOT DETECTED. DOES NOT EXCLUDE THE POSSIBILITY OF EXPOSURE TO HCV. 02/08/2023 12:2 5 PM CDT [facility] Final Result [facility] [address] [place] [address], [id number] from Last 3 Months or Most Recently Relevant to Health Maintenance Insurance [facility] Care Teams Bilingual Secretary Relationship Specialty Start Date End Date Compa Anton MD [address] [place] [phone] PCP - General FAMILY PRACTICE 02/05/23
--- OUTSIDE RECORDS SUMMARY | 2025-08-24 19:05 | XMS_ITS | Clinical Summary ---
Author Organization [facility] Address [address] [place] [id number] Care Team Providers Care Residential Service Technician Name Role Phone Koby Mckeon Primary Care [...] Encounters Date Type Department Care Team Description 08/19/2025 Telephone [facility] Medicine Pulmonary [address] [place] [address] for [facility] 8th [place] [address] [place] [address] Hilda Garland MD 08/04/2025 8:24 AM RAIL TRACTOR OPERATOR - 08/04/2025 11:59 PM RAIL TRACTOR OPERATOR Hospital Encounter [facility]) [address] [place] [id number] Discharge Disposition: Discharge to home or self care 08/04/2025 8:23 AM RAIL TRACTOR OPERATOR - 08/04/2025 11:59 PM RAIL TRACTOR OPERATOR Hospital Encounter [facility] ([facility]) [address] [place] [address] Discharge Disposition: Discharge to home or self care 08/04/2025 8:21 AM RAIL TRACTOR OPERATOR - 08/04/2025 11:59 PM RAIL TRACTOR OPERATOR Hospital Encounter [facility] ([facility]) [address] [place] [address] Discharge Disposition: Discharge to home or self care 08/04/2025 Telephone [facility] [address] [facility] 8th [place] [address] [place] [address] Christina Arshad RN 07/28/2025 9:00 AM RAIL TRACTOR OPERATOR Office Visit [facility] [address] [place] [address] [place] [address] Hilda Garland MD Pulmonary nodule (Primary Dx) 07/28/2025 8:00 AM RAIL TRACTOR OPERATOR - 07/28/2025 11:59 PM RAIL TRACTOR OPERATOR Hospital Encounter [facility] [address] [facility] [address] [place] [address] Pulmonary nodule Discharge Disposition: Discharge to home or self care 07/28/2025 Telephone [facility] [address] [place] [address] [place] [address] Sirena Nunes CMA 07/09/2025 Orders Only [facility] [address] [place] [address] [place] [address] Kit Multani CPhT Pulmonary nodule (Primary Dx) [...] on file Legal Sex Male 6:16 PM RAIL TRACTOR OPERATOR Gender Identity Not on file Sexual Orientation Not on file Last Filed Vital Signs Vital Sign Reading Time Taken Comments Blood Pressure 108/74 07/28/2025 9:32 AM RAIL TRACTOR OPERATOR Pulse 71 07/28/2025 9:32 AM RAIL TRACTOR OPERATOR Temperature 36.4 C (97.6 F) 07/28/2025 9:32 AM RAIL TRACTOR OPERATOR Respiratory Rate 18 07/28/2025 9:32 AM RAIL TRACTOR OPERATOR Oxygen Saturation 98% 07/28/2025 9:32 AM RAIL TRACTOR OPERATOR Inhaled Oxygen Concentration - - Weight 104.3 kg (230 lb) 07/28/2025 9:32 AM RAIL TRACTOR OPERATOR Height 180.3 cm (5' 11) 07/28/2025 9:32 AM RAIL TRACTOR OPERATOR Body Mass Index 32.08 07/28/2025 9:32 AM RAIL TRACTOR OPERATOR Plan of Treatment Health Maintenance Due Date [...] BODY OUTSIDE REFERENCE Routine 08/04/2025 8:24 AM RAIL TRACTOR OPER[address] CT BODY OUTSIDE REFERENCE Routine 08/04/2025 8:23 [address] TRA[address] BODY OUTSIDE REFERENCE Routine 08/04/2025 8:21 AM RAIL TRACTOR OPERATOR PULMONARY FUNCTION TEST (PFT) Routine 07/28/2025 8:59 AM RAIL TRACTOR OPERATOR Pulmonary nodule from Last 3 Months Results * CT Body Outside Reference (08/04/2025 8:24 AM RAIL TRACTOR OPERATOR) Impressions [facility] - 08/04/2025 8:24 AM RAIL TRACTOR OPERATOR These images are for Reference purposes only and have not been reviewed by [facility]. There will be no report generated by a [facility] Radiologist. Narrative [facility] - 08/04/2025 8:24 AM RAIL TRACTOR OPERATOR EXAMINATION: Images For Reference Purposes Only us Hilda Garland MD IM CT PROCEDURES Final Resu lt Performing Organization Address [facility] de Phone Number [email or web address] * CT Body Outside Reference (08/04/2025 8:23 AM RAIL TRACTOR OPERATOR) Impressions [facility] - 08/04/2025 8:23 AM RAIL TRACTOR OPERATOR These images are for Reference purposes only and have not been reviewed by [facility]. There will be no report generated by a [facility] Radiologist. Narrative [facility] - 08/04/2025 8:23 AM RAIL TRACTOR OPERATOR EXAMINATION: Images For Reference Purposes Only us Hilda Garland MD IM CT PROCEDURES Final Resu lt Performing Organization Address [facility] de Phone Number [facility] * CT Body Outside Reference (08/04/2025 8:21 AM RAIL TRACTOR OPERATOR) Impressions [facility] - 08/04/2025 8:21 AM RAIL TRACTOR OPERATOR These images are for Reference purposes only and have not been reviewed by [facility]. There will be no report generated by a [facility] Radiologist. Narrative [facility] - 08/04/2025 8:21 AM RAIL TRACTOR OPERATOR EXAMINATION: Images For Reference Purposes Only us Hilda Garland MD IM CT PROCEDURES Final Resu lt Performing Organization Address [facility] de Phone Number [email or web address] * Pulmonary Function Test - (07/28/2025 8:59 AM RAIL TRACTOR OPERATOR) FVC PRE 3.81 L [facility] FVC %PRE PRED 75 % [facility] FEV1 PRE 3.15 L [facility] FEV1 %PRE PRED 79 % [facility] FEV1/FVC PRE 82.7 % [facility] Anatomical Region Laterality Modality PFT 07/28/2025 8:55 AM RAIL TRACTOR OPERATOR Narrative 07/28/2025 9:29 AM RAIL TRACTOR OPERATOR PFT performed at:->[facility] Adult PFT Lab- [facility] Procedure:->Oxygen Assessment [...] and %HbO2 is age dependent. However, the [facility] Pulmonary Function Laboratory defines hypoxemia as a PaO2 <56 mm Hg or a %HbO2 <89%. Starting on September of 2024 the [facility] Pulmonary Function Laboratory utilizes race neutral GLI Global normative equations. Hilda Garland MD PFT ORDERABLES Final Result from Last 3 Months Insurance [facility] Care Teams Residential Service Technician Relationship Specialty Start Date End Date Koby Mckeon PA [address] [place] [id number] PCP - General Physician Brush Sander 07/09/25
--- NOTE | 2025-08-24 20:48 | PC.NURSE ---
ERP aware of pt's vitals. No new orders at this time.
[2025-08-24] MEDS: oxyCODONE/ACETAMINOPHEN (*CRX) 5-325 MG TABLET 1 TABLET PO (21:10)
== END 2025-08-24 20:32 | disposition home or self-care (01) ==
PROVIDERS: Emergency Provider Emergency Medicine; PCP Physician Assistant
DX: M54.32 Sciatica, left side (principal)
CPT/HCPCS: 36415; 80053; 81003; 84550; 85025; 85380; 85652; 86140; 96374; 96375; 99284; A9270; J1100; J1885; J2270

== ENCOUNTER 2025-08-27 11:13 | Outpatient (CLI) | payer BC, SELFPAY ==
--- NOTE | ~2025-08-27 | US_ITS ---
EXAMINATION: US venous doppler [facility] DATE: 08/27/2025 11:45 INDICATION: Localized swelling, mass or lump at the left lower limb. Erythema at the left lower leg. TECHNIQUE: Grayscale ultrasound images without and with compression and Doppler ultrasound images of the left lower extremity veins were obtained. COMPARISON: None. FINDINGS: The visualized portions of left common femoral vein, profunda (deep) femoral vein, femoral vein, popliteal vein, peroneal veins, posterior tibial veins, gastrocnemius vein and greater saphenous vein outflow are patent. IMPRESSION: 1. No deep venous thrombosis in the left lower limb. Reviewed, dictated and finalized at location A. GENERATION REPRESENTATIVE
== END 2025-08-27 11:14 | disposition home or self-care (01) ==
LOC: MICIMG 11:14
PROVIDERS: PCP Physician Assistant
DX: R22.42 Localized swelling, mass and lump, left lower limb (principal)
CPT/HCPCS: 93971